=== PATIENT | male | born 1950 | race African-American/Black ===

== ENCOUNTER 2024-03-19 03:31 | Emergency (ER) | payer OTHER, SELFPAY ==
[2024-03-19 03:32] VITALS: BMI 24.2
[2024-03-19 03:44] VITALS: BP 143/80; PULSE 74; RESP 16; TEMP 36.9; O2SAT 95
--- NOTE | 2024-03-19 04:00 | EKG_ITS ---
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
--- NOTE | 2024-03-19 04:00 | XR_ITS ---
Examination: PA chest single view Technique: Upright PA chest single view Exam date and time: March 19, 2024 0516 hrs. Comparison December 09, 2003 Indications: Coughing today. Findings: Mild prominence left ventricle Minimal opacity at the bases No pulmonary edema Intact osseous structures Impression: A lateral chest film follow-up would be helpful in excluding early bibasilar pneumonia
--- NOTE | 2024-03-19 04:01 | EDRME_ITS ---
Rapid Medical Screening Exam [facility] Arrival date/time: 03/19/24 03:31 74M with history of HTN, DM and Valley Fever presents to ED with 1 week of cough and sore throat. Chief Complaint: Flu Like Symptoms Vital signs: Vital Signs Temperature 98.4 F 03/19/24 03:44 Pulse Rate 74 03/19/24 03:44 Respiratory Rate 16 03/19/24 03:44 Blood Pressure 143/80 H 03/19/24 03:44 Pulse Oximetry (%) 95 03/19/24 03:44 Oxygen Delivery Method Room Air 03/19/24 03:44
[2024-03-19 06:00] VITALS: BP 143/76; PULSE 71; RESP 16; TEMP 36.6; O2SAT 98
[2024-03-19 06:15] LABS: Basophils % (Auto) 1 % (0-2.5); Eosinophils # (Auto) 0.2 Thou/mm3 (0.0-0.5); Eosinophils % (Auto) 3 % (0-10); Hematocrit 53.3 % (41.0-53.0); Hemoglobin 17.6 g/dL (13.5-16.0); Immature Granulocytes % (Auto) 0 % (0-0); Immature Granulocytes Auto 0.03 Thou/mm3 (0.00-0.00); Lymphocytes # (Auto) 1.9 Thou/mm3 (1.0-4.8); Lymphocytes % (Auto) 27 % (10-50); Mean Corpuscular Hemoglobin 28.8 pg (25.0-35.0); Mean Corpuscular Volume 87 fL (80-100); Monocytes # (Auto) 0.7 Thou/mm3 (0.0-0.8); Monocytes % (Auto) 10 % (0-12); Neutrophils # (Auto) 4.3 Thou/mm3 (1.8-7.7); Neutrophils % (Auto) 60 % (37-80); Nucleated Red Blood Cell % 0 /100 WBC (0); Platelet Count 152 Thou/mm3 (140-440); RDW Standard Deviation 47.1 fL (35.1-43.9); Red Blood Count 6.11 Miln/mm3 (4.50-5.90); White Blood Count 7.1 Thou/mm3 (3.8-10.6)
[2024-03-19 06:34] LABS: B-Type Natriuretic Peptide < 20 pg/mL (0-100)
[2024-03-19 06:36] LABS: Alanine Aminotransferase 18 U/L (10-49); Albumin, Serum 4.6 gm/dL (3.4-4.8); Albumin/Globulin Ratio 1.6 (1.2-2.2); Alkaline Phosphatase 93 U/L (46-116); Anion Gap 3 (7-16); Aspartate Amino Transferase 19 U/L (0-34); BUN/Creatinine Ratio 11 Ratio (12-20); Bilirubin,Total 0.5 mg/dL (0.3-1.2); Blood Urea Nitrogen 15 mg/dL (9-23); Calcium 9.3 mg/dL (8.3-10.6); Calcium (Corrected) 9.3 mg/dL (8.5-10.1); Carbon Dioxide 30.9 mMol/L (20.0-31.0); Chloride 103 mMol/L (98-107); Creatinine (Component) 1.4 mg/dL (0.6-1.3); Estimated Creatinine Clearance 40.5 mL/min (>60); Globulin 2.8 gm/dL (2.3-3.5); Glucose 111 mg/dL (74-106); Osmolality,Calculated 275 (275-295); Potassium 3.5 mMol/L (3.4-5.1); Sodium 137 mMol/L (136-145); Total Protein 7.4 gm/dL (5.7-8.2); eGFR 52 See Note
[2024-03-19 07:20] VITALS: BP 134/68; PULSE 74; RESP 18; TEMP 37; O2SAT 98
--- NOTE | 2024-03-19 11:51 | PD.EDURI ---
Upper Respiratory Inf. RME/HPI General Chief Complaint: Flu Like Symptoms Stated Complaint: sore throat, cold symptoms x1 week Time Seen by Provider: 03/19/24 07:03 Arrival date/time: 03/19/24 03:31 Limitations: no limitations RME / HPI RME / HPI Narrative: 03/19/24 03:31 74M with history of HTN, DM and Valley Fever presents to ED with 1 week of cough and sore throat. DR. HUMPHREY MAIN ED EVALUATION: 74 year old male, who is the [facility] department, presents to the Emergency Department with complaint of improving sore throat and nasal congestion. He is concerned as it?s been going on for two weeks and does not know if he has COVID. He comes to the emergency department as he describes the COVID tests are free . He denies a cough, fevers, chills, or sweats. Related Data Home Medications ?Medication ?Instructions ?Recorded ?Confirmed itraconazole 100 mg capsule 100 mg PO BID ##0 05/04/09 Terazosin * (HYTRIN *) 5 mg PO QDAY #0 caps 03/12/15 gabapentin 100 mg capsule 100 mg PO HS PRN PAIN #0 caps 03/12/15 insulin glargine 100 unit/mL 10 unit subcut QAM #0 vials 03/12/15 subcutaneous solution (Lantus U-100 Insulin) lisinopril 2.5 mg tablet 2.5 mg PO QDAY #0 tabs 03/12/15 omeprazole 20 mg capsule,delayed 20 mg PO QDAY ##0 03/12/15 release (Prilosec) Allergies Allergy/AdvReac Type Severity Reaction Status Date / Time No Known Allergies Allergy Verified 03/19/24 03:35 Review of Systems Review of Systems Systems Reviewed: All systems reviewed, normal except as documented Narrative Review of Systems: GEN: No fever, no chills, no weight loss EYES: No discharge, no visual changes, no pain HEENT: No ear pain, + nasal congestion, + sore throat PULM: No shortness of breath, no cough, no congestion CV: No chest pain, no dyspnea on exertion, no palpitations GI: No nausea, no vomiting, no diarrhea, no pain, no constipation : No frequency, no urgency and no dysuria MUSC/SKEL: No joint pain, no back pain SKIN: No rash PSYCH: No hallucinations, no depression HEME/LYMPH: No easy bleeding or bruising tendencies NEURO: No weakness, no headache Past Medical History Past Medical History CARDIAC: Positive Cardiac Disorders and Hypertension ENDOCRINE: Positive Endocrine Disorders and Diabetes Mellitus Type 2 Social History SMOKING STATUS: Former smoker SUBSTANCE USE: does not use ALCOHOL: Never ED Exam General Limitations: Present no limitations General appearance: Present alert and in no apparent distress Head Head exam: Present atraumatic, normocephalic and normal inspection Eye Eye exam: Present normal appearance, PERRL and EOMI ENT ENT exam: Present normal exam, normal oropharynx and mucous membranes moist Neck Neck exam: Present normal inspection, full ROM and trachea midline Chest Chest inspection: Present normal inspection and symmetric chest wall rise Respiratory Respiratory exam: Present normal lung sounds bilaterally Cardiovascular Cardiovascular exam: Present regular rate, normal rhythm and normal heart sounds Abdominal Exam Abdominal exam: Present soft and normal bowel sounds Extremities Exam Extremities exam: Present normal inspection and full ROM Back Exam Back exam: Present normal inspection and full ROM Neurological Exam Neurological exam: Present alert, oriented X3 and CN II-XII intact Psychiatric Psychiatric exam: Present normal affect and normal mood Skin Skin exam: Present warm, dry, intact and normal color Course Quality Measures none Orders Category Date Time Status Bedside COVID-19 Antigen Test NOW Care 03/19/24 03:42 Completed Bedside Influenza A&B Antigen Test NOW Care 03/19/24 03:42 Completed EKG (ED ONLY) *Do not use* NOW Care 03/19/24 04:00 Completed EKG (ED Only) Stat Exams 03/19/24 04:00 Draft XR chest 1V portable Stat Exams 03/19/24 04:00 Completed B-Type Natriuretic Peptide Stat Lab 03/19/24 04:59 Completed CBC Stat Lab 03/19/24 04:59 Completed Comprehensive Metabolic Panel Stat Lab 03/19/24 04:59 Completed Troponin I Stat Lab 03/19/24 04:59 Completed Vital Signs Vital signs: Vital Signs Temperature 98.4 F 03/19/24 03:44 Pulse Rate 74 03/19/24 03:44 Respiratory Rate 16 03/19/24 03:44 Blood Pressure 143/80 H 03/19/24 03:44 Pulse Oximetry (%) 95 03/19/24 03:44 Oxygen Delivery Method Room Air 03/19/24 03:44 Procedures -ED EKG Interpretation #1: Date of EK03/19/24 Time of EK:06 Rate: 66 Interpretation: Interpreted by me Additional EKG comment: sinus rhythm, rate 66, a wing QRS in a right bundle branch block pattern, no acute ST-T wave changes. Upper Respiratory Infection MDM Narrative MDM Narrative:: Yani Recio am scribing for and in the presence of Dr. Humphrey. Patient data External records reviewed:: [facility] previous records (Reviewed last ED visit dated 11/08/23, discharged with the following: Laceration of great toe, right.) Clinical information provided by:: patient Social determinants that could affect healthcare access:: other (specify) (Former smoker) Patient has the following chronic illnesses:: Hypertension and diabetes mellitus type 2. How is presenting disease/condition affected by chronic disease/condition?: uneffected by Evaluation data The following diagnostics were reviewed and interpreted by me:: lab results, radiology exam(s) and EKG tracing(s) Lab and/or radiology exams considered but not ordered:: none Interpretation Summary: All the labs were sent via the RME process. RADIOLOGY Procedure(s): XR chest 1V portable Accession Number(s): [id number] cc: Sathish Ball MD; NO PRIMARY/FAMILY,PHYSICIAN; Carlton Armenta PA-C~ Examination: PA chest single view Technique: Upright PA chest single view Exam date and time: March 19, 2024 0516 hrs. Comparison December 09, 2003 Indications: Coughing today. Findings: Mild prominence left ventricle Minimal opacity at the bases No pulmonary edema Intact osseous structures Impression: A lateral chest film follow-up would be helpful in excluding early bibasilar pneumonia Dictated By: Sathish Ball MD Medications / Prescriptions Medications or Prescriptions considered but not ordered:: none Medication administrations:: none Consultations Consultation(s) initiated? (list below): No Diagnosis Upper Respiratory Differential Diagnosis: upper respiratory infection, viral infection and influenza Most likely diagnosis given after review of the tests above:: Upper respiratory infection Admission Indicated Admission indicated?: not indicated Admission Request Was there a request for admission?: No Disposition Plan Disposition Plan: Discharge Discharge Attestation Discharge Attestation: The patient and all family members were given an opportunity to ask questions and understood the discharge instructions. Discharge instructions specifically effects, indications for sooner follow up or return to the emergency department, and the expected course of current diagnosis. Patient condition: Stable Discharge Plan Plan Patient Disposition: HOME (Self Care) Prescriptions/Referrals Prescriptions/Med Rec: No Action itraconazole 100 MG capsule 100 mg PO BID Qty: 0 insulin glargine [Lantus U-100 Insulin] 100 U/ML solution 10 unit Sub-Q QAM Qty: 0 omeprazole [Prilosec] 20 MG capsule,delayed release(DR/EC) 20 mg PO QDAY Qty: 0 Patient Comments: TO SUPPRESS GASTRIC ACID SECRETIONS gabapentin 100 MG capsule 100 mg PO HS PRN (Reason: PAIN) Qty: 0 lisinopril 2.5 MG tablet 2.5 mg PO QDAY Qty: 0 Terazosin * (HYTRIN *) 5 MG capsule 5 mg PO QDAY Qty: 0 Referrals: No Primary/Family,Physician [Primary Care Provider] - In 1 week Problem List Clinical Impression: Upper respiratory infection Patient/Caregiver Discharge Instructions Education Materials: ED URI, Viral, No Abx (Adult) Additional Instructions: Follow-up with your primary care doctor at the [facility] in 2 to 3 days for recheck. You can return to the emergency department sooner symptoms worsen or if you notice any new, concerning issues. Print Language: Burkinan Stand Alone Forms: Edith Award Info., Patient Portal Info Letter
== END 2024-03-19 07:36 | disposition home or self-care (01) ==
PROVIDERS: Physician Assistant; Emergency Provider Emergency Medicine
DX: J06.9 Acute upper respiratory infection, unspecified (principal); I45.10 Unspecified right bundle-branch block; I10 Essential (primary) hypertension; Z87.891 Personal history of nicotine dependence
CPT/HCPCS: 36415; 71045; 80053; 83880; 84484; 85025; 87400; 87811; 93005; 99283

== ENCOUNTER 2024-04-23 00:16 | Emergency (ER) | payer OTHER, SELFPAY ==
[2024-04-23 00:17] VITALS: BMI 23.5
--- NOTE | 2024-04-23 00:21 | EKG_ITS ---
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
[2024-04-23 00:29] VITALS: BP 117/74; PULSE 78; RESP 18; TEMP 36.6; O2SAT 94
--- NOTE | 2024-04-23 00:38 | PD.EDRME ---
Rapid Medical Screening Exam [facility] Arrival date/time: 04/23/24 00:16 74M with history of DM, HTN, and Valley Fever (many years ago) presents to ED with upper ab pain and constipation. Patient denies N/V and dysuria. Chief Complaint: Abdominal Pain Vital signs: Vital Signs Temperature 98 F 04/23/24 00:29 Pulse Rate 78 04/23/24 00:29 Respiratory Rate 18 04/23/24 00:29 Blood Pressure 117/74 04/23/24 00:29 Pulse Oximetry (%) 94 L 04/23/24 00:29 Oxygen Delivery Method Room Air 04/23/24 00:29
--- NOTE | 2024-04-23 00:39 | XR_ITS ---
Examination: CT abdomen with intravenous contrast CT pelvis with intravenous contrast 2-D coronal reconstructions 2-D sagittal reconstructions Date and time of exam:April 23, 2024 at 0250 hrs. Indications: Upper abdominal pain constipation beginning today. CTDI: vol (mGy) 6.30 DLP: (mGycm) 784 Technique: Multiple axial sections of the abdomen and pelvis have been obtained. 64 slice high-resolution scanner used. 3 mm axial sections have been obtained, post intravenous injection 30 cc Isovue-300 2-D sagittal, coronal reconstructions obtained. Low dose protocols were performed. One or more of the following dose reduction techniques were used; automated exposure control, adjustment of the mA and/or KV according to patient size, use of iterative reconstruction technique. Findings: No focal liver or splenic lesion Possible gallbladder wall thickening The pancreatic head appears prominent, axial image 99, measuring 4.1 cm No dilated pancreatic duct No renal or ureteral calculi, no hydronephrosis Aorta normal size Normal appendix No bowel obstruction Urinary bladder intact Prostate 5.3 cm with subtle enhancement in the central portion of the prostate Transpedicular lumbar stabilization L3-S1 with laminectomies Impression: Recommend hepatobiliary sonography follow-up to exclude gallbladder wall thickening Enlarged pancreatic head, recommend MRI abdomen follow-up pre and postcontrast
[2024-04-23 01:18] LABS: Collection Type, Urine Clean Catch
[2024-04-23 01:19] LABS: Basophils % (Auto) 0 % (0-2.5); Eosinophils # (Auto) 0.1 Thou/mm3 (0.0-0.5); Eosinophils % (Auto) 1 % (0-10); Hematocrit 52.6 % (41.0-53.0); Hemoglobin 17.6 g/dL (13.5-16.0); Immature Granulocytes % (Auto) 0 % (0-0); Immature Granulocytes Auto 0.02 Thou/mm3 (0.00-0.00); Lymphocytes # (Auto) 1.7 Thou/mm3 (1.0-4.8); Lymphocytes % (Auto) 22 % (10-50); Mean Corpuscular HGB Conc 33.5 g/dl (31.0-37.0); Mean Corpuscular Hemoglobin 28.5 pg (25.0-35.0); Mean Corpuscular Volume 85 fL (80-100); Monocytes # (Auto) 0.8 Thou/mm3 (0.0-0.8); Monocytes % (Auto) 10 % (0-12); Neutrophils # (Auto) 5.3 Thou/mm3 (1.8-7.7); Neutrophils % (Auto) 67 % (37-80); Nucleated Red Blood Cell % 0 /100 WBC (0); Platelet Count 145 Thou/mm3 (140-440); RDW Standard Deviation 45.2 fL (35.1-43.9); Red Blood Count 6.17 Miln/mm3 (4.50-5.90); White Blood Count 7.9 Thou/mm3 (3.8-10.6)
[2024-04-23 01:30] LABS: Bilirubin,Urine Negative (Negative); Blood,Urine Negative (Negative); Clarity,Urine Clear (Clear/Hazy); Color,Urine Lt-Yellow (Lt Yel-Yel); Culture Indicated,Urine Not Indicated; Glucose, Urine 4+ (Negative); Ketones,Urine Negative (Negative); Leukocyte Esterase,Urine Negative (Negative); Nitrite,Urine Negative (Negative); Protein,Urine Negative (Neg - Trace); RBC,Urine < 1 /hpf (0-3); Specific Gravity,Urine 1.032 (1.001-1.035); Squamous Epithelial Cell,Urine < 1 /hpf (0-5); Urobilinogen,Urine Negative mg/dL (0.0-1.0); WBC,Urine < 1 /hpf (0-5)
[2024-04-23 01:33] LABS: Amphetamine/Methamp Scrn,U Negative (Negative); Barbiturate Screen,Urine Negative (Negative); Benzodiazepines Screen,Urine Negative (Negative); Benzoylecgonine Screen, Ur Negative (Negative); Fentanyl Screen,Urine Negative (Negative); Opiate Screen,Urine Negative (Negative); THC Screen,Urine Negative (Negative)
[2024-04-23 01:50] LABS: Alanine Aminotransferase 16 U/L (10-49); Albumin, Serum 4.9 gm/dL (3.4-4.8); Albumin/Globulin Ratio 1.9 (1.2-2.2); Alkaline Phosphatase 86 U/L (46-116); Anion Gap 6 (7-16); Aspartate Amino Transferase 14 U/L (0-34); BUN/Creatinine Ratio 14 Ratio (12-20); Bilirubin,Total 0.6 mg/dL (0.3-1.2); Blood Urea Nitrogen 23 mg/dL (9-23); Carbon Dioxide 32.7 mMol/L (20.0-31.0); Chloride 97 mMol/L (98-107); Creatinine (Component) 1.6 mg/dL (0.6-1.3); Estimated Creatinine Clearance 36.7 mL/min (>60); Globulin 2.6 gm/dL (2.3-3.5); Glucose 245 mg/dL (74-106); Lipase 1266 U/L (12-53); Osmolality,Calculated 283 (275-295); Potassium 3.8 mMol/L (3.4-5.1); Sodium 136 mMol/L (136-145); Total Protein 7.5 gm/dL (5.7-8.2); Troponin I 0.027 ng/mL (0.0-0.045); eGFR 44 See Note
--- NOTE | 2024-04-23 01:51 | PD.EDABDPN ---
ED Abdominal Pain RME/HPI General Chief Complaint: Abdominal Pain Stated complaint: UPPER ABDOMINAL PAIN Arrival date/time: 04/23/24 00:16 Limitations: no limitations RME / HPI RME / HPI narrative: 04/23/24 00:16 74M with history of DM, HTN, and Valley Fever (many years ago) presents to ED with upper ab pain and constipation. Patient denies N/V and dysuria. ----- Dr. Jimenez's Main ED Evaluation: 74yo male with pmhx DM, HTN presents to the ED for a chief complaint of epigastric pain x 2-3 days. Patient states he's been constipated for the last few days, reporting he's had milk of magnesia and a fleet enema without any alleviation of symptoms. He hasn't been able to eat big meals. He was concerned, so he came in for evaluation. He is passing minimal gas. Denies any N/V, fever, chills or any other associated symptoms. No known allergies. Related Data Home Medications ?Medication ?Instructions ?Recorded ?Confirmed itraconazole 100 mg capsule 100 mg PO BID ##0 05/04/09 Terazosin * (HYTRIN *) 5 mg PO QDAY #0 caps 03/12/15 gabapentin 100 mg capsule 100 mg PO HS PRN PAIN #0 caps 03/12/15 insulin glargine 100 unit/mL 10 unit subcut QAM #0 vials 03/12/15 subcutaneous solution (Lantus U-100 Insulin) lisinopril 2.5 mg tablet 2.5 mg PO QDAY #0 tabs 03/12/15 omeprazole 20 mg capsule,delayed 20 mg PO QDAY ##0 03/12/15 release (Prilosec) Allergies Allergy/AdvReac Type Severity Reaction Status Date / Time No Known Allergies Allergy Verified 03/19/24 03:35 Review of Systems Review of Systems Systems Reviewed: All systems reviewed, normal except as documented Past Medical History Past Medical History CARDIAC: Positive Hypertension; Negative Cardiac Disorders or Congestive Heart Failure RESPIRATORY: Negative Chronic Obstructive Pulmonary Disease (COPD) or Asthma GENITOURINARY: Negative Renal Disease ENDOCRINE: Positive Endocrine Disorders and Diabetes Mellitus Type 2; Negative Diabetes Mellitus Type 1 HEMATOLOGIC: Negative Sickle Cell Disease Social History SMOKING STATUS: Never smoker SUBSTANCE USE: does not use ED Exam General Limitations: Present no limitations General appearance: Present alert and in no apparent distress Head Head exam: Present atraumatic Eye Eye exam: Present normal appearance, PERRL and EOMI ENT ENT exam: Present normal exam, normal oropharynx and mucous membranes moist Neck Neck exam: Present normal inspection, full ROM and trachea midline Chest Chest inspection: Present normal inspection and symmetric chest wall rise Respiratory Respiratory exam: Present normal lung sounds bilaterally Cardiovascular Cardiovascular exam: Present regular rate, normal rhythm and normal heart sounds Abdominal Exam Abdominal exam: Present soft and normal bowel sounds Extremities Exam Extremities exam: Present normal inspection and full ROM Back Exam Back exam: Present normal inspection and full ROM Neurological Exam Neurological exam: Present alert, oriented X3 and CN II-XII intact Psychiatric Psychiatric exam: Present normal affect and normal mood Skin Skin exam: Present warm, dry, intact and normal color Course Quality Measures none Orders Category Date Time Status CT Screening NOW Care 04/23/24 00:39 Active EKG (ED ONLY) *Do not use* NOW Care 04/23/24 00:21 Completed Insert IV NOW Care 04/23/24 00:39 Active MRI Screening NOW Care 04/23/24 05:[address] abdomen pelvis w con Stat Exams 04/23/24 00:39 Taken EKG (ED Only) Stat Exams 04/23/24 00:21 Draft MR abdomen w con Stat Exams 04/23/24 Ordered CBC Stat Lab 04/23/24 01:03 Completed CMP [Comprehensive Metabolic Panel] Stat Lab 04/23/24 01:03 Completed Drug Screen,Urine Stat Lab 04/23/24 00:47 Completed Lipase Stat Lab 04/23/24 01:03 Completed Lipid Panel Stat Lab 04/23/24 01:03 Completed Troponin I Stat Lab 04/23/24 01:03 Completed Urinalysis, C/S if Indicated Stat Lab 04/23/24 00:47 Completed Sodium Chloride 0.9% 500 ml [Ns] 500 ml Med 04/23/24 05:05 Discontinued IV 999 mls/hr Vital Signs Vital signs: Vital Signs Temperature 98 F 04/23/24 00:29 Pulse Rate 78 04/23/24 00:29 Respiratory Rate 18 04/23/24 00:29 Blood Pressure 117/74 04/23/24 00:29 Pulse Oximetry (%) 94 L 04/23/24 00:29 Oxygen Delivery Method Room Air 04/23/24 00:29 Abdominal Pain MDM Patient data External records reviewed:: [facility] previous records (Per chart review, patient has no relevant previous ED visits or admissions to this facility.) Clinical information provided by:: patient Social determinants that could affect healthcare access:: none Patient has the following chronic illnesses:: DM, HTN How is presenting disease/condition affected by chronic disease/condition?: uneffected by Evaluation data The following diagnostics were reviewed and interpreted by me:: lab results, radiology exam(s) and EKG tracing(s) Lab and/or radiology exams considered but not ordered:: none Interpretation Summary: WBC count is normal, Creatinine is slightly elevated at 1.6, Glucose is elevated at 245, Troponin is normal, Lipase is elevated at 1266, UA shows 4+ glucose, UDS is negative, according to my interpretation. EKG done at 0033, NSR, rate of 68, RBBB, QTc: 392, NM Interval: 167, no STEMI, similar to previous EKG, according to my interpretation. ------- I have personally reviewed the radiology data and agree with the radiologist's interpretation below: Telerad Preliminary Report Draft Patient: JOHNNY HERNANDEZ Record#: [id number] Birthdate: 1950 Age/Sex: 74 / M Location: [facility] Attending Dr: Ordering Physician: Date of Service: Procedure(s): Accession Number(s): cc: ~ CT scan of the abdomen and pelvis with intravenous contrast (axial sections with sagittal and coronal reformats) April 23, 2024 at 0250 hours Clinical History: Upper abdominal pain and constipation. Comparison: None. Findings: The lung bases are clear. The liver, spleen, kidneys and adrenals are unremarkable. Prominent pancreatic duct with transition point at the level of the pancreatic head. Subcentimeter hypodensity in the pancreatic head, questionable pancreatic head lesion. Distended gallbladder with prominent wall. Fecal loading. Enlarged prostate. No evidence of bowel obstruction. The appendix is within normal limits. There is no mesenteric or retroperitoneal adenopathy. The urinary bladder is unremarkable. There is no free fluid or free air. Degenerative changes of the imaged portions of the spine. No acute fractures. Close posterior laminectomy of L4. Posterior fusion hardware between L3, L4, and S1. Impression: 1. Questionable pancreatic head lesion, further evaluation to exclude pancreatic cancer is recommended. 2. Fecal loading. 3. Enlarged prostate. Consider correlation with PSA. 4. Distended gallbladder with prominent wall, consider acute cholecystitis in the differential ecchymosis. Consider correlation with right upper quadrant ultrasound. Report Electronically Signed By: Tim Suh 04/23/2024 4:11:52 AM [EST] Medications / Prescriptions Medications or Prescriptions considered but not ordered:: none Medication administrations:: Medication Administration History Discontinued Medications Sodium Chloride (Ns) 500 mls @ 999 mls/hr IV .Q31M ONE Stop: 04/23/24 05:35 Last Infusion: 04/23/24 06:11 Dose: Infused Documented By: Admin: 04/23/24 05:25 Dose: 999 mls/hr Documented By: YVROSE see above Consultations Consultation(s) initiated? (list below): No Diagnosis Differential diagnosis abdominal pain: pancreatitis and other (gallstones, gallstone pancreatitis, GERD) Most likely diagnosis given after review of the tests above:: final dx pending at sign out. Admission Indicated Admission indicated?: not indicated Admission Request Was there a request for admission?: No Disposition Plan Disposition Plan: other (specify) (Signed out to the next oncoming provider at 0600 pending MRI.) Discharge Plan Plan Patient Disposition: HOME (Self Care) Patient condition on transfer: Stable Prescriptions/Referrals Prescriptions/Med Rec: No Action itraconazole 100 MG capsule 100 mg PO BID Qty: 0 insulin glargine [Lantus U-100 Insulin] 100 U/ML solution 10 unit Sub-Q QAM Qty: 0 omeprazole [Prilosec] 20 MG capsule,delayed release(DR/EC) 20 mg PO QDAY Qty: 0 Patient Comments: TO SUPPRESS GASTRIC ACID SECRETIONS gabapentin 100 MG capsule 100 mg PO HS PRN (Reason: PAIN) Qty: 0 lisinopril 2.5 MG tablet 2.5 mg PO QDAY Qty: 0 Terazosin * (HYTRIN *) 5 MG capsule 5 mg PO QDAY Qty: 0 Referrals: No Primary/Family,Physician [Primary Care Provider] - In 1 week Problem List Clinical Impression: Elevated serum creatinine, Elevated lipase, Acute pancreatitis Patient/Caregiver Discharge Instructions Print Language: Zimbabwean Stand Alone Forms: Edith Award Info., Patient Portal Info Letter
[2024-04-23 02:43] LABS: Cardiac Risk Estimate 2.7 RATIO (4.0-6.7); Cholesterol 125 mg/dL (132-200); HDL Cholesterol 46 mg/dL (40-60); LDL Cholesterol,Calculated 49 mg/dL (0-130); Triglycerides 149 mg/dL (30-150)
--- NOTE | 2024-04-23 04:12 | PRELIM_ITS ---
CT scan of the abdomen and pelvis with intravenous contrast (axial sections with sagittal and coronal reformats) April 23, 2024 at 0250 hoursClinical History: Upper abdominal pain and constipation.Co mparison: None.Findings:The lung bases are clear.The liver, spleen, kidneys and adrenals are unremark able.Prominent pancreatic duct with transition point at the level of the pancreatic head. Subcentimet er hypodensity in the pancreatic head, questionable pancreatic head lesion.Distended gallbladder with prominent wall.Fecal loading.Enlarged prostate.No evidence of bowel obstruction. The appendix is wit hin normal limits.There is no mesenteric or retroperitoneal adenopathy.The urinary bladder is unremar kable. There is no free fluid or free air.Degenerative changes of the imaged portions of the spine. N o acute fractures. Close posterior laminectomy of L4. Posterior fusion hardware between L3, L4, and S 1.Impression:1. Questionable pancreatic head lesion, further evaluation to exclude pancreatic cancer is recommended.2. Fecal loading.3. Enlarged prostate. Consider correlation with PSA.4. Distended gall bladder with prominent wall, consider acute cholecystitis in the differential ecchymosis. Consider co rrelation with right upper quadrant ultrasound. Report Electronically Signed By: Tim Suh 4:11:52 AM [EST]
[2024-04-23] MEDS: SODIUM CHLORIDE 0.9% 500 ML 500 ML 999 ML IV (05:25)
[2024-04-23 05:33] VITALS: BP 123/73; PULSE 66; RESP 17; TEMP 36.8; O2SAT 95
--- NOTE | 2024-04-23 08:05 | PC.NURSE ---
PT STATES THAT HE HAS TO GO HOME TO CHECK ON HIS AND TAKE CARE OF A FEW THINGS. ADVISED PT THAT THE DOCTOR ORDERED MRI DUE TO HIM HAVING ABNORMAL FINDINGS IN CT AND BLOOD TEST. PT STATES THAT THE DOCTOR HAD SPOKE WITH HIM ALREADY REGARDING RESULTS BUT STATES THAT HE HAS TO GO HOME AND CHECK ON HIS . PT STATES THAT HE WILL GO HOME AND CALL HIS DOCTORS AT THE [facility]. EXPLAINED ALL CONSEQUENCES UP TO AND INCLUDING . PT STILL WANTS TO LEAVE. PT STATES THAT HE WILL RETURN LATER TO ER IF NEEDED BUT WILL MAKE SURE TO FOLLOW UP WITH HIS DOCTORS AT THE [facility]. AMA FORM SIGNED BY PT
--- NOTE | 2024-04-23 10:46 | PD.EDADDENDU ---
Emergency Room Addendum Addendum Narrative: The patient was signed out to me at 6:[address] Jimenez, pending MRI of the abdomen. According to the nursing staff the patient did not want to wait for MRI. He signed out AGAINST MEDICAL ADVICE at approximately 830 this morning. I was informed about this later after the fact
== END 2024-04-23 08:44 | disposition left against medical advice (07) ==
PROVIDERS: Physician Assistant; Emergency Provider Emergency Medicine
DX: R74.8 Abnormal levels of other serum enzymes (principal); R79.89 Other specified abnormal findings of blood chemistry; K85.90 Acute pancreatitis without necrosis or infection, unspecified; Z53.29 Procedure and treatment not carried out because of patient's decision for other reasons
CPT/HCPCS: 36415; 74177; 80053; 80061; 80307; 81001; 83690; 84484; 85025; 93005; 96360; 99285; A4649; J7040; Q9967

== ENCOUNTER 2024-04-25 07:40 | Emergency (ER) | payer OTHER, SELFPAY ==
--- NOTE | 2024-04-25 | XR_ITS ---
Examination: MRI abdomen with intravenous contrast. MRI abdomen without intravenous contrast. Date and time of exam: April 25, 2024 1130 hours INDICATIONS: Abdominal pain beginning 6 days ago, CT examination April 23, 2024 prominent pancreatic head 4.1 cm Technique: Multiple axial, sagittal and coronal sections of the abdomen obtained. Transverse images, TR 6020, TE 107. T1 weighted transverse images, TR 582, TE 9.5. T2-weighted sagittal images, TR 4000, TE 105. T2-weighted sagittal images, TR 4000, TE 5. Coronal images, TR 4210, TE 107. Axial and coronal images are obtained post 5 gadolinium FINDINGS: There are no focal liver lesions or intrahepatic biliary tract dilatation No gallstones, no gallbladder wall edema Normal common hepatic common bile duct The pancreatic head is mildly prominent 3 cm There is minimal dilatation of the pancreatic duct 2.8 mm Spleen is not enlarged Postcontrast images demonstrate no abnormal liver splenic or pancreatic mass lesion No hydronephrosis No ascites Aorta normal size Impression: No definite pancreatic mass Recommend 6 month follow-up CT abdomen with intravenous contrast Negative for pancreatitis Normal common hepatic common bile duct Negative for cholelithiasis, negative for cholecystitis
--- NOTE | 2024-04-25 07:52 | XR_ITS ---
Examination: Abdomen sonogram, Limited Date and time of exam: April 25, 2024 0830 hours INDICATIONS: Epigastric pain beginning one week ago Technique: Real-time cheek scale transabdominal sonographic images of the upper abdomen obtained. Findings: No gallstones Gallbladder wall 0.40 cm no edema Common bile duct 0.4 cm no stones Pancreatic head 3.3 cm Liver 12.7 cm fatty infiltration Normal hepatopedal portal venous flow Patent IVC IMPRESSION: Negative for cholelithiasis Borderline thickening gallbladder wall, clinical correlation advised
[2024-04-25 07:58] VITALS: BP 142/78; PULSE 74; RESP 19; TEMP 36.7; O2SAT 95
[2024-04-25 08:12] VITALS: BP 129/71; PULSE 79; RESP 17; TEMP 36.7; O2SAT 99
--- NOTE | 2024-04-25 08:22 | EDNOTE_ITS ---
ED Abdominal Pain RME/HPI General Chief Complaint: Abdominal Pain Stated complaint: ABD PAIN FOR 6 DAYS Time seen by provider: 04/25/24 07:56 Arrival date/time: 04/25/24 07:40 RME / HPI RME / HPI narrative: 74 year old male presents to the ED for complaint of abdominal pain today. Described as aching in sensation that is located most to the epigastric region. Patient was evaluated here 2 days ago Thursday for similar abdominal pain that had been on/off x 2 weeks. During ED stay had labs showing elevated pancreas levels and CT showed abnormalities in the pancreatic head. Patient was intended to have an MRI performed that day however signed out against medical advise. Today reports his pain has improved although still present. Accompanied by decreased appetite and some constipation. Denies fevers, chills, cough, vomiting, diarrhea, or urinary symptoms. Related Data Home Medications ?Medication ?Instructions ?Recorded ?Confirmed itraconazole 100 mg capsule 100 mg PO BID ##0 05/04/09 Terazosin * (HYTRIN *) 5 mg PO QDAY #0 caps 03/12/15 gabapentin 100 mg capsule 100 mg PO HS PRN PAIN #0 caps 03/12/15 insulin glargine 100 unit/mL 10 unit subcut QAM #0 vials 03/12/15 subcutaneous solution (Lantus U-100 Insulin) lisinopril 2.5 mg tablet 2.5 mg PO QDAY #0 tabs 03/12/15 omeprazole 20 mg capsule,delayed 20 mg PO QDAY ##0 03/12/15 release (Prilosec) Allergies Allergy/AdvReac Type Severity Reaction Status Date / Time No Known Allergies Allergy Verified 04/25/24 07:42 Review of Systems Review of Systems Narrative Review of Systems: GEN: No fever, no chills, no weight loss EYES: No discharge, no visual changes, no pain HEENT: No ear pain, no congestion, no sore throat PULM: No shortness of breath, no cough, no congestion CV: No chest pain, no dyspnea on exertion, no palpitations GI: No nausea, no vomiting, no diarrhea, +pain, +constipation : No frequency, no urgency and no dysuria MUSC/SKEL No joint pain, no back pain SKIN: No rash NEURO: No weakness, no headache Past Medical History Past Medical History CARDIAC: Positive Hypertension ENDOCRINE: Positive Endocrine Disorders and Diabetes Mellitus Type 2 Family History FAMILY HISTORY: Positive Family Cardiac Disorders ([place] FOR PT'S DAD); Negative Family Cancer Social History SMOKING STATUS: Never smoker SUBSTANCE USE: does not use ED Exam Narrative Physical exam: GENERAL APPEARANCE: Well hydrated, well nourished, in no acute distress. VITALS: All vitals were reviewed and the pulse ox is 95% on room air which is normal according to my interpretation. HEENT: Normocephalic, atramatic, EOMI, EACs are patent. There is no bulge or retraction. Throat without erythema or exudate. Moist oromucosa. No jaundice NECK: Supple, no JVD or bruits. CARDIOVASCULAR: Heart regular without S3-S4 or murmur. No rubs or gallops. LUNGS/CHEST: Clear to auscultation bilaterally. No rales, rhonchi, or wheezing. Normal inspection. ABDOMEN: Soft, nontender, with normal bowel sounds. No pulsatile masses. No rebound, rigidity, or guarding. No incarcerated hernia. Normal inspection and palpation. EXTREMITIES: Normal inspection and palpation. No edema, clubbing, or cyanosis. Intact CSM SKIN: Warm and dry without rashes. Normal inspection. MUSCULOSKELETAL: Normal inspection. No gross deformity, full ROM all extremities NEURO: Alert and oriented x3. Cranial nerves II through XII grossly intact. There are no other motor or sensory deficits noted. PSYCHIATRIC: Normal mood and affect. No psychosis Course Quality Measures none Orders Category Date Time Status Insert IV NOW Care 04/25/24 07:52 Active MRI Screening NOW Care 04/25/24 07:53 Active MR abdomen wo/w con Stat Exams 04/25/24 Completed US gall bladder Stat Exams 04/25/24 07:52 Completed CBC Stat Lab 04/25/24 08:00 Completed Comprehensive Metabolic Panel Stat Lab 04/25/24 08:00 Completed Lipase Stat Lab 04/25/24 08:00 Completed Vital Signs Vital signs: Vital Signs Temperature 98.0 F 04/25/24 07:58 Pulse Rate 74 04/25/24 07:58 Respiratory Rate 19 04/25/24 07:58 Blood Pressure 142/78 H 04/25/24 07:58 Pulse Oximetry (%) 95 04/25/24 07:58 Oxygen Delivery Method Room Air 04/25/24 07:58 Abdominal Pain MDM MDM Narrative MDM Narrative:: I, Jerilyn Dudley, am scribing for and in the presence of Dr. Seo. CBC is negative. CMP negative. Except for creatinine of 1.5 which is consistent with chronic renal insufficiency. Lipase is now 200 which is much better than before. Ultrasound gallbladder and MRI abdomen have been done and results are listed below. They are negative. And I also gave the patient copy of those ultrasound and MRI reports to follow-up with PMD. The patient has no surgical abdomen at this time. Patient data External records reviewed:: [facility] previous records (I reviewed ED visit on 04/23/2024) Clinical information provided by:: patient Social determinants that could affect healthcare access:: none Patient has the following chronic illnesses:: Hypertension, diabetes How is presenting disease/condition affected by chronic disease/condition?: uneffected by Evaluation data The following diagnostics were reviewed and interpreted by me:: lab results and radiology exam(s) Lab and/or radiology exams considered but not ordered:: None Interpretation Summary: Ordering Physician: Cathy ALCOCER)Ravindra NP Date of Service: 04/25/24 Procedure(s): US gall bladder Accession Number(s): [id number] cc: Cathy ALCOCER)Ravindra NP; Sathish Ball MD; NO PRIMARY/FAMILY,PHYSICIAN~ Examination: Abdomen sonogram, Limited Date and time of exam: April 25, 2024 0830 hours INDICATIONS: Epigastric pain beginning one week ago Technique: Real-time cheek scale transabdominal sonographic images of the upper abdomen obtained. Findings: No gallstones Gallbladder wall 0.40 cm no edema Common bile duct 0.4 cm no stones Pancreatic head 3.3 cm Liver 12.7 cm fatty infiltration Normal hepatopedal portal venous flow Patent IVC IMPRESSION: Negative for cholelithiasis Borderline thickening gallbladder wall, clinical correlation advised Dictated By: Sathish Ball MD Signed By: <Electronically signed by Sathish Ball MD in [place]> 04/25/24 0946 Ordering Physician: Ravindra Morgan NP, NP Date of Service: 04/25/24 Procedure(s): MR abdomen wo/w con Accession Number(s): [id number] cc: Cathy (SOFTWARE INSTALLATION ENGINEER),Ravindra CARDONA; Sathish Ball MD; NO PRIMARY/FAMILY,PHYSICIAN~ Examination: MRI abdomen with intravenous contrast. MRI abdomen without intravenous contrast. Date and time of exam: April 25, 2024 1130 hours INDICATIONS: Abdominal pain beginning 6 days ago, CT examination April 23, 2024 prominent pancreatic head 4.1 cm Technique: Multiple axial, sagittal and coronal sections of the abdomen obtained. Transverse images, TR 6020, TE 107. T1 weighted transverse images, TR 582, TE 9.5. T2-weighted sagittal images, TR 4000, TE 105. T2-weighted sagittal images, TR 4000, TE 5. Coronal images, TR 4210, TE 107. Axial and coronal images are obtained post 5 gadolinium FINDINGS: There are no focal liver lesions or intrahepatic biliary tract dilatation No gallstones, no gallbladder wall edema Normal common hepatic common bile duct The pancreatic head is mildly prominent 3 cm There is minimal dilatation of the pancreatic duct 2.8 mm Spleen is not enlarged Postcontrast images demonstrate no abnormal liver splenic or pancreatic mass lesion No hydronephrosis No ascites Aorta normal size Impression: No definite pancreatic mass Recommend 6 month follow-up CT abdomen with intravenous contrast Negative for pancreatitis Normal common hepatic common bile duct Negative for cholelithiasis, negative for cholecystitis Dictated By: Sathish aBll MD Signed By: <Electronically signed by Sathish Ball MD in [place]> 04/25/24 1200 Medications / Prescriptions Medications or Prescriptions considered but not ordered:: None Medication administrations:: See above Consultations Consultation(s) initiated? (list below): No Diagnosis Differential diagnosis abdominal pain: abdominal pain, calculus of kidney, constipation, diverticulitis, gastroenteritis and pancreatitis Most likely diagnosis given after review of the tests above:: Elevated lipase Admission Indicated Admission indicated?: not indicated Admission Request Was there a request for admission?: No Disposition Plan Disposition Plan: Discharge Discharge Attestation Discharge Attestation: The patient and all family members were given an opportunity to ask questions and understood the discharge instructions. Discharge instructions specifically effects, indications for sooner follow up or return to the emergency department, and the expected course of current diagnosis. Patient condition: Stable Discharge Plan Plan Patient Disposition: HOME (Self Care) Disposition Comment: Stable for DC Prescriptions/Referrals Prescriptions/Med Rec: No Action itraconazole 100 MG capsule 100 mg PO BID Qty: 0 insulin glargine [Lantus U-100 Insulin] 100 U/ML solution 10 unit Sub-Q QAM Qty: 0 omeprazole [Prilosec] 20 MG capsule,delayed release(DR/EC) 20 mg PO QDAY Qty: 0 Patient Comments: TO SUPPRESS GASTRIC ACID SECRETIONS gabapentin 100 MG capsule 100 mg PO HS PRN (Reason: PAIN) Qty: 0 lisinopril 2.5 MG tablet 2.5 mg PO QDAY Qty: 0 Terazosin * (HYTRIN *) 5 MG capsule 5 mg PO QDAY Qty: 0 Referrals: No Primary/Family,Physician [Primary Care Provider] - In 1 week Problem List Clinical Impression: Elevated lipase Patient/Caregiver Discharge Instructions Education Materials: Lipase Additional Instructions: See your doctor in 3 days. So your doctor copy of the ultrasound and MRI report that I gave you. Return the nearest ER if any problem. Your lipase has decreased from 1300 to 202 days. Normal is around 50. Print Language: Haitian Stand Alone Forms: Edith Award Info., Patient Portal Info Letter
[2024-04-25 08:26] VITALS: BMI 22.7
[2024-04-25 08:29] LABS: Alanine Aminotransferase 16 U/L (10-49); Albumin/Globulin Ratio 1.9 (1.2-2.2); Alkaline Phosphatase 87 U/L (46-116); Anion Gap 8 (7-16); Aspartate Amino Transferase 18 U/L (0-34); BUN/Creatinine Ratio 15 Ratio (12-20); Blood Urea Nitrogen 23 mg/dL (9-23); Calcium 9.6 mg/dL (8.3-10.6); Calcium (Corrected) 9.6 mg/dL (8.5-10.1); Carbon Dioxide 31.2 mMol/L (20.0-31.0); Chloride 97 mMol/L (98-107); Creatinine (Component) 1.5 mg/dL (0.6-1.3); Globulin 2.7 gm/dL (2.3-3.5); Glucose 96 mg/dL (74-106); Lipase 205 U/L (12-53); Osmolality,Calculated 275 (275-295); Potassium 3.2 mMol/L (3.4-5.1); Sodium 136 mMol/L (136-145); Total Protein 7.7 gm/dL (5.7-8.2); eGFR 48 See Note
[2024-04-25 08:51] LABS: Basophils % (Auto) 0 % (0-2.5); Eosinophils # (Auto) 0.1 Thou/mm3 (0.0-0.5); Eosinophils % (Auto) 1 % (0-10); Hematocrit 53.6 % (41.0-53.0); Hemoglobin 17.5 g/dL (13.5-16.0); Immature Granulocytes % (Auto) 0 % (0-0); Immature Granulocytes Auto 0.02 Thou/mm3 (0.00-0.00); Lymphocytes # (Auto) 1.9 Thou/mm3 (1.0-4.8); Lymphocytes % (Auto) 27 % (10-50); Mean Corpuscular HGB Conc 32.6 g/dl (31.0-37.0); Mean Corpuscular Hemoglobin 28.5 pg (25.0-35.0); Mean Corpuscular Volume 87 fL (80-100); Monocytes # (Auto) 0.8 Thou/mm3 (0.0-0.8); Monocytes % (Auto) 11 % (0-12); Neutrophils # (Auto) 4.3 Thou/mm3 (1.8-7.7); Neutrophils % (Auto) 61 % (37-80); Nucleated Red Blood Cell % 0 /100 WBC (0); Platelet Count 165 Thou/mm3 (140-440); RDW Standard Deviation 46.4 fL (35.1-43.9); Red Blood Count 6.13 Miln/mm3 (4.50-5.90); White Blood Count 7.1 Thou/mm3 (3.8-10.6)
[2024-04-25 10:18] VITALS: BP 127/69; PULSE 63; RESP 19; TEMP 36.7; O2SAT 95
[2024-04-25 12:41] VITALS: BP 155/91; PULSE 97; RESP 19; TEMP 36.6; O2SAT 97
== END 2024-04-25 12:39 | disposition home or self-care (01) ==
PROVIDERS: Nurse Practitioner Primary Care; Emergency Provider Emergency Medicine
DX: R74.8 Abnormal levels of other serum enzymes (principal); R10.13 Epigastric pain
CPT/HCPCS: 36415; 74183; 76705; 80053; 83690; 85025; 99285; A9579